=== PATIENT | male | born 1975 | race Caucasian/White ===

== ENCOUNTER 2016-11-12 15:06 | Emergency (ER) | payer BC ==
--- NOTE | ~2016-11-12 | EKG ---
PATIENT: SINCERE AG UNIT #: [id number] Ventricular Rate: 59 BPM Atrial Rate: 59 BPM P-R Interval: 158 ms QRS Duration: 92 ms Q-T Interval: 408 ms QTC Calculation(Bezet): 403 ms P [place]: 49 degrees Calculated T [place]: 16 degrees Diagnosis Line: Sinus bradycardia Diagnosis Line: Otherwise normal ECG Diagnosis Line: No previous ECGs available Diagnosis Line: Confirmed by GIGI HANNA MD ([id number]) on 11/12/2016 Diagnosis Line: 11:02:48 PM INTERPRETING MD: JACQUES JOHNSON
--- NOTE | ~2016-11-12 | EKG ---
PATIENT: SINCERE AG UNIT #: [id number] Ventricular Rate: 51 BPM Atrial Rate: 51 BPM P-R Interval: 170 ms QRS Duration: 94 ms Q-T Interval: 464 ms QTC Calculation(Bezet): 427 ms P [place]: 41 degrees Calculated R [place]: -3 degrees Calculated T [place]: 13 degrees Diagnosis Line: Sinus bradycardia with sinus arrhythmia Diagnosis Line: Minimal voltage criteria for LVH, may be normal Diagnosis Line: variant Diagnosis Line: Borderline ECG Diagnosis Line: When compared with ECG of 12-NOV-2016 11:30, Diagnosis Line: (unconfirmed) Diagnosis Line: No significant change was found Diagnosis Line: Confirmed by GIGI HANNA MD ([id number]) on 11/12/2016 Diagnosis Line: 11:07:49 PM INTERPRETING MD: JACQUES JOHNSON
--- NOTE | ~2016-11-12 | CR72 ---
[facility] A Service of [facility] & [facility] RADIOLOGY TEXT RESULTS PATIENT: SINCERE AG LOCATION: [facility] : 71 UNIT #: [id number] AGE: [address]: Jonny Jimenez MD SEX: M ORDER DR: [id number] [facility] [address] [place], [place] [address] [id number] MR#: [id number] Acc #: [id number] NAME: SINCERE AG. : 1975 SEX: M STUDY DATE/TIME: 11/12/2016 14:14 UNIT: [facility] ROOM: STUDY DESCRIPTION: CR Chest Single View Portable Attending Physician: Jonny Jimenez M.D. Ordering Physician: Jonny Jimenez M.D. Primary Care Physician: Ashleigh Redmond A.P.R.N. MEDICAL IMAGING REPORT This report is preliminary unless electronic signature is present EXAM Portable chest. HISTORY Chest pain onset today. Nonsmoker. FINDINGS Portable view of the chest demonstrates moderate lung volumes and satisfactory technique. No infiltrates or effusions. Parenchymal and hilar calcifications suggest old granulomatous disease. Heart, mediastinum, and great vessels and bony thorax are unremarkable. Overall no acute findings. Dictated by... Karis Oneill M.D. THIS IS AN ELECTRONICALLY VERIFIED REPORT Karis Oneill M.D. at 11/12/2016 7:34 PM ARMEN/lázaro TD: 11/12/2016 16:42 JOB #: [id number] MEDICAL IMAGING REPORT Page 1 of 1 COPY
[2016-11-12 12:11] LABS: BASOPHIL# 0.1 X10e3 (0-0.3); BASOPHIL% 0.9 % (0-2.5); EOSINOPHIL# 0.3 X10e3 (0-0.7); HEMATOCRIT 43.1 % (38.0-50.0); HEMOGLOBIN 14.9 gm/dL (13.0-16.0); LYMPHOCYTE# 3.1 X10e3 (1.0-3.5); LYMPHOCYTE% 35.3 % (17.0-45.0); MEAN CELL VOLUME 88.2 FL (83-96); MEAN CORPUSCULAR HEMOGLOBIN 30.4 PG (28-34); MEAN CORPUSCULAR HGB CONC 34.4 g/dL (30-36); MEAN PLATELET VOLUME 9.5 FL (6.5-11.5); MONOCYTE# 0.6 X10e3 (0-1.0); MONOCYTE% 6.6 % (3.0-12.0); NEUTROPHIL# 4.8 X10e3 (1.5-7.1); NEUTROPHIL% 54.2 % (40-75); PLATELET COUNT 185 X10e3 (140-420); RED BLOOD COUNT 4.89 X10e (3.90-5.60); RED CELL DISTRIBUTION WIDTH 12.5 % (11.0-15.5); WHITE BLOOD COUNT 8.8 X10e3 (4.0-10.5)
[2016-11-12 12:13] LABS: DIFF IND NO
[2016-11-12 12:14] LABS: POC - CKMB 3.8 ng/mL (0.0-7.9); POC - TROPONIN <0.05 ng/mL (<=0.05)
[2016-11-12 12:36] LABS: ALBUMIN SERUM 4.4 g/dL (3.5-5.0); BILIRUBIN, DIRECT 0.1 mg/dL (0.0-0.2); BILIRUBIN,INDIRECT 0.6 mg/dL (0.0-0.9); BILIRUBIN,TOTAL 0.7 mg/dL (0.2-2.0); BUN/CREATININE RATIO 21.25; CALCIUM SERUM 9.3 mg/dL (8.4-10.2); CREATININE SERUM 0.8 mg/dL (0.6-1.4); GLOM FILT RATE Estimated 109.5 mL/min (>60); POTASSIUM 3.7 mmol/L (3.5-5.1); PROTEIN TOTAL SERUM 7.6 g/dL (6.0-8.3)
[2016-11-12 13:44] LABS: POC - CKMB 4.3 ng/mL (0.0-7.9); POC - TROPONIN <0.05 ng/mL (<=0.05)
[~2016-11-12 15:06] MED LIST: IBUPROFEN PO; LORTAB 7.5-5001 TAB PO; SYNTHROID112 MCG PO
[2016-11-12 15:09] LABS: POC - CKMB 3.1 ng/mL (0.0-7.9); POC - TROPONIN <0.05 ng/mL (<=0.05)
== END 2016-11-12 16:05 | disposition home or self-care (01) ==
LOC: CED 15:06
PROVIDERS: Emergency Medicine
DX: R07.89 Other chest pain (principal)
CPT/HCPCS: 36415; 71010; 80048; 80076; 82553; 84484; 85025; 93005; 96374; 99284; J1885